=== PATIENT | male | born 1990 | race Caucasian/White ===

== ENCOUNTER 2017-02-13 11:02 | Day surgery (SDC) | payer OTHER ==
[~2017-02-13] VITALS: Ht 170.2 cm; Wt 73.3 kg
[2017-02-13 12:33] VITALS: Ht 170.2 cm; Wt 73.3 kg
[2017-02-13] MEDS ORDERED: ferrous sulfate PO (12:40)
[2017-02-13 12:48] VITALS: BP 104/55; PULSE 48; RESP 24
[2017-02-13] MEDS ORDERED: FENTAnyl 50 MCG/ML VIAL ONE (15:31)
[2017-02-13] MEDS ORDERED: MIDAZOLAM 1 MG/ML 2 ML INJ ONE ×3 (15:31→17:26)
[2017-02-13 15:50] VITALS: BP 104/60; PULSE 44; RESP 12
--- NOTE | 2017-02-13 16:44 | GILP ---
DATE OF PROCEDURE: 02/13/2017 PROCEDURE: Colonoscopy. PREOPERATIVE DIAGNOSIS: Rectal bleeding. POSTOPERATIVE DIAGNOSES: 1. Colonoscopy all the way to the cecum. 2. Internal hemorrhoids. INDICATION: Mr. Chaz Carlson is a 26-year-old male patient who had rectal bleeding and iron deficiency anemia. The patient was scheduled for colonoscopy for further evaluation. The procedure and possible complications were well explained to the patient. He understood and consented to the procedure. DESCRIPTION OF PROCEDURE: Under the influence of fentanyl and Versed, the colonoscope was carefully introduced in the rectum. Under direct vision, it was advanced all the way to the cecum. Findings: The patient had internal hemorrhoids. No colitis or neoplasm was identified. He tolerated the procedure very well. There were no complication from the procedure. At the end of procedure, he was awake with stable vital signs. He was discharged home in the care of his family. IMPRESSION: 1. Colonoscopy all the way to the cecum. 2. Internal hemorrhoids. 3. No colitis or neoplasm was identified. PLAN: Anusol HC 2.5 percent cream at bedtime. Dictated By: MD COURTNEY Barboza/rk/gino /Document#: [id number]
== END 2017-02-13 17:38 | disposition home or self-care (01) ==
LOC: GIL 11:02
PROVIDERS: ATTEND Internal Medicine Gastroenterology
DX: K62.5 Hemorrhage of anus and rectum (principal); K64.8 Other hemorrhoids
CPT/HCPCS: 45378; J2250; J3010; Z7610